=== PATIENT | female | born 2000 | race Caucasian/White ===

== ENCOUNTER 2021-12-19 15:53 | Observation (INO) | payer BC ==
[2021-12-19 16:33] LABS: #Eosinphils 0.2 10x3/uL (0.0-0.5); #Monocytes 0.4 10x3/uL (0.0-1.1); #Neutrophils 3.4 10x3/uL (1.5-8.4); %Basophils 0.3 % (0.0-2.0); %Lymphocytes 37.4 % (18.0-47.0); %Monocytes 5.9 % (0.0-10.0); %Neutrophils 53.2 % (40.0-75.0); Hemoglobin 12.4 g/dL (12.0-15.5); Mean Corpuscular HGB CONC 34.2 g/dL (32.0-36.0); Mean Corpuscular Volume 87.9 fl (81.6-98.3); Mean Platelet Volume 9.5 fl (7.4-10.4); Platelet Count 197 10x3/uL (150-450); RBC Distribution Width 12.6 % (11.5-14.5); Red Blood Cell (RBC) Count 4.13 10x6/uL (3.90-5.03); White Blood Cell (WBC) Count 6.3 10x3/uL (3.5-10.5)
[2021-12-19 16:50] LABS: ALT (SGPT) 11 U/L (8-55); AST (SGOT) 12 U/L (5-34); Albumin 4.8 g/dL (3.5-5.0); Alkaline Phosphatase 66 U/L (40-110); Anion Gap 15 mmol/L (10-20); BUN (Urea Nitrogen) 13 mg/dL (7.0-18.7); Bilirubin, Total 0.3 mg/dL (0.2-1.2); Calc. Creatinine Clearance 0 mL/min (70-130); Calcium 9.4 mg/dL (7.8-10.44); Carbon Dioxide 21 mmol/L (22-29); Chloride 111 mmol/L (98-107); Globulin 2.4 g/dL (2.4-3.5); Glucose 115 mg/dL (70-105); Lipase 276 U/L (8-78); Potassium 3.7 mmol/L (3.5-5.1); Protein, Total 7.2 g/dL (6.0-8.3); Sodium 143 mmol/L (136-145)
[2021-12-19] MEDS ORDERED: Morphine 4 MG/ML VIAL ONE (17:20)
[2021-12-19] MEDS ORDERED: Ondansetron PF 4 MG/2 ML Vial ONE (17:20)
[2021-12-19] MEDS ORDERED: Acetaminophen 650 MG Suppository PR PRN (18:08)
[2021-12-19] MEDS ORDERED: Ondansetron ODT 4 MG TAB PO PRN (18:08)
[2021-12-19 18:51] VITALS: BMI 20.4
[2021-12-19] MEDS: Lactated Ringer's 1,000 ML IV SCH (20:15)
[2021-12-19] MEDS: Morphine 2 MG/ML VIAL SLOW IVP PRN (20:34)
[2021-12-20 00:24] LABS: SARS-CoV-2 PCR by NAA Not Detected (NotDetected)
[2021-12-20] MEDS: Acetaminophen 325 MG TAB PO PRN ×2 (01:19→18:06)
[2021-12-20] MEDS: Lactated Ringer's 1,000 ML IV SCH ×5 (01:20→19:18)
[2021-12-20 05:46] LABS: ALT (SGPT) 9 U/L (8-55); AST (SGOT) 11 U/L (5-34); Albumin 3.8 g/dL (3.5-5.0); Alkaline Phosphatase 53 U/L (40-110); Anion Gap 11 mmol/L (10-20); BUN (Urea Nitrogen) 9 mg/dL (7.0-18.7); Bilirubin, Total 0.4 mg/dL (0.2-1.2); Calc. Creatinine Clearance 98 mL/min (70-130); Calcium 8.8 mg/dL (7.8-10.44); Carbon Dioxide 24 mmol/L (22-29); Chloride 112 mmol/L (98-107); Globulin 1.9 g/dL (2.4-3.5); Glucose 85 mg/dL (70-105); Potassium 3.9 mmol/L (3.5-5.1); Protein, Total 5.7 g/dL (6.0-8.3); Sodium 143 mmol/L (136-145)
[2021-12-20 05:55] LABS: #Eosinphils 0.3 10x3/uL (0.0-0.5); #Monocytes 0.4 10x3/uL (0.0-1.1); #Neutrophils 1.5 10x3/uL (1.5-8.4); %Basophils 0.5 % (0.0-2.0); %Eosinophils 5.2 % (0.0-6.0); %Lymphocytes 60.2 % (18.0-47.0); %Monocytes 7.5 % (0.0-10.0); %Neutrophils 26.4 % (40.0-75.0); Hemoglobin 11.4 g/dL (12.0-15.5); Mean Corpuscular HGB CONC 34.4 g/dL (32.0-36.0); Mean Corpuscular Hemoglobin 29.8 pg (27.0-33.0); Mean Corpuscular Volume 86.6 fl (81.6-98.3); Mean Platelet Volume 11.1 fl (7.4-10.4); RBC Distribution Width 12.8 % (11.5-14.5); Red Blood Cell (RBC) Count 3.82 10x6/uL (3.90-5.03); White Blood Cell (WBC) Count 5.8 10x3/uL (3.5-10.5)
[2021-12-20 05:56] LABS: Platelet Count 143 10x3/uL (150-450)
[2021-12-20 05:58] LABS: Eosinophils 5 % (0-10); Lymphocytes 65 % (21-51); Monocytes 8 % (0-10); Reactive Lymphocytes 3 % (0-10)
[2021-12-20 05:59] LABS: Platelet Morphology Comment Appears Adequate
[2021-12-20 06:00] LABS: RBC Morphology Normal
[2021-12-20] MEDS: Pantoprazole 40 MG VIAL IVP SCH (08:51)
[2021-12-20 09:57] LABS: Cardiac Risk 2.1 (Less than 4.5)
[2021-12-20 10:02] LABS: Bilirubin Neg (Negative); Blood, Urine Negative (Negative); Clarity Clear (Clear); Glucose, Urine (Dipstick) Normal (Negative); Ketone, Urine Negative (Negative); Leukocyte Negative (Negative); Nitrite Negative (Negative); Protein, Urine (Dipstick) Negative (Neg-Trace); Specific Gravity, Urine 1.005 (1.002-1.036); Urobilinogen Normal mg/dL (Less than 2)
[2021-12-20 10:03] LABS: Urine Culture Reflex No No
[2021-12-20 10:05] LABS: Pregnancy Test - Urine (BHCG) Negative (Negative); Pregu Control Background? CLEAR/WHITE (CLR/WHITE); Pregu Control Bar Appear? YES (CONTROL BAR); Specific Gravity 1.005 (1.002-1.036)
[2021-12-20] MEDS: HYDROcodone/Acetaminophen 5/325 mg Tablet PO PRN ×2 (10:06→14:05)
[2021-12-20 10:26] LABS: Bacteria/HPF Rare-Few HPF (None Seen); RBC/HPF 0-3 HPF (0-3); WBC/HPF None Seen HPF (0-3)
[2021-12-20] MEDS: Ondansetron PF 4 MG/2 ML Vial IVP PRN (15:53)
[2021-12-20] MEDS ORDERED: Metoclopramide HCl 10 MG/2 ML VIAL IVP SCH ×2 (18:45→20:15)
[2021-12-20] MEDS ORDERED: diphenhydrAMINE 50 MG CAP PO SCH (18:45)
[2021-12-20] MEDS ORDERED: Ketorolac Tromethamine 30 MG/ML VIAL IVP SCH ×2 (18:45→20:15)
[2021-12-20] MEDS: Morphine 2 MG/ML VIAL SLOW IVP PRN (19:01)
[2021-12-20] MEDS: carBAMazepine 200 MG TAB PO SCH (20:30)
[2021-12-20] MEDS ORDERED: SUMAtriptan Succinate 6 MG/0.5 ML VIAL SC SCH (22:45)
[2021-12-21] MEDS: Lactated Ringer's 1,000 ML IV SCH ×2 (00:15→05:25)
[2021-12-21] MEDS: Acetaminophen 325 MG TAB PO PRN (05:27)
[2021-12-21 06:14] LABS: ALT (SGPT) 7 U/L (8-55); AST (SGOT) 10 U/L (5-34); Albumin 3.6 g/dL (3.5-5.0); Alkaline Phosphatase 52 U/L (40-110); Anion Gap 13 mmol/L (10-20); BUN (Urea Nitrogen) 7 mg/dL (7.0-18.7); Bilirubin, Total 0.4 mg/dL (0.2-1.2); Calc. Creatinine Clearance 109 mL/min (70-130); Calcium 8.5 mg/dL (7.8-10.44); Carbon Dioxide 23 mmol/L (22-29); Chloride 110 mmol/L (98-107); Globulin 1.7 g/dL (2.4-3.5); Glucose 72 mg/dL (70-105); Potassium 3.6 mmol/L (3.5-5.1); Protein, Total 5.3 g/dL (6.0-8.3); Sodium 142 mmol/L (136-145)
[2021-12-21 06:52] LABS: Hemoglobin 10.8 g/dL (12.0-15.5); Mean Corpuscular HGB CONC 34.1 g/dL (32.0-36.0); Mean Corpuscular Hemoglobin 29.8 pg (27.0-33.0); Mean Corpuscular Volume 87.6 fl (81.6-98.3); Mean Platelet Volume 10.5 fl (7.4-10.4); Platelet Count 144 10x3/uL (150-450); RBC Distribution Width 12.3 % (11.5-14.5); Red Blood Cell (RBC) Count 3.62 10x6/uL (3.90-5.03); White Blood Cell (WBC) Count 4.4 10x3/uL (3.5-10.5)
[2021-12-21 07:01] LABS: MDiff Complete? YES
[2021-12-21 07:13] LABS: Eosinophils 3 % (0-10); Lymphocytes 61 % (21-51); Monocytes 5 % (0-10); Neutrophil 31 % (42-75)
[2021-12-21 07:14] LABS: Platelet Morphology Comment Appears Adequate; RBC Morphology Normal; Reflex for Review?? YES
[2021-12-21] MEDS: HYDROcodone/Acetaminophen 5/325 mg Tablet PO PRN ×2 (08:26→12:30)
[2021-12-21] MEDS: Pantoprazole 40 MG VIAL IVP SCH (08:27)
[2021-12-21] MEDS: Ondansetron PF 4 MG/2 ML Vial IVP PRN (08:27)
[2021-12-21] MEDS: carBAMazepine 200 MG TAB PO SCH (08:27)
[2021-12-21 10:54] LABS: MDiff Complete? YES; Neutrophil 19 % (42-75)
[2021-12-21 12:33] LABS: Hemoglobin A1c 4.9 % (4.0-6.0)
[2021-12-21 15:57] VITALS: BP 121/60; TEMP 97.5
[2021-12-22 07:20] LABS: IgG Subclass 1 585 mg/dL (248-810); IgG Subclass 2 261 mg/dL (130-555); IgG Subclass 3 62 mg/dL (15-102); Immunoglobulin - G (Sendout) 1001 mg/dL (586-1602)
== END 2021-12-21 16:09 | disposition home or self-care (01) ==
LOC: CSHERS 15:53 → CSHTELE 17:56 → INTOOBSV 17:56
PROVIDERS: ADMIT Family Medicine; ATTEND Family Medicine
DX: K85.90 Acute pancreatitis without necrosis or infection, unspecified (principal); R51.9 Headache, unspecified; F44.5 Conversion disorder with seizures or convulsions; F41.9 Anxiety disorder, unspecified; D69.6 Thrombocytopenia, unspecified; D64.9 Anemia, unspecified; Z86.16 Personal history of COVID-19; Z86.718 Personal history of other venous thrombosis and embolism; Z91.51 Personal history of suicidal behavior; Z79.899 Other long term (current) drug therapy; Z88.0 Allergy status to penicillin; Z91.041 Radiographic dye allergy status; Z98.2 Presence of cerebrospinal fluid drainage device; Z20.822 Contact with and (suspected) exposure to COVID-19
CPT/HCPCS: 36415; 70450; 71045; 74176; 76705; 80053; 80061; 81001; 81025; 82787; 83036; 83690; 83735; 84443; 84484; 85025; 85060; 86140; 87086; 93005; 93010; 96374; 96375; 96376; C9113; G0378; J1885; J2270; J2405; J2765; J7120; Q0162; U0003; U0005

== ENCOUNTER 2021-12-24 14:53 | Emergency (ER) | payer BC ==
[2021-12-24] MEDS ORDERED: Metoclopramide HCl 10 MG TAB ONE (16:27)
[2021-12-24] MEDS ORDERED: Ibuprofen 200 MG TAB ONE (16:28)
== END 2021-12-24 17:23 | disposition home or self-care (01) ==
LOC: CSHERS 14:53
DX: G91.9 Hydrocephalus, unspecified (principal); Z86.718 Personal history of other venous thrombosis and embolism
CPT/HCPCS: 70450; 75809

== ENCOUNTER 2022-01-31 21:03 | Emergency (ER) | payer BC ==
[2022-02-01] MEDS ORDERED: Ketorolac Tromethamine 30 MG/ML VIAL ONE (02:11)
== END 2022-02-01 02:14 | disposition home or self-care (01) ==
LOC: CSHERS 21:03
DX: G44.309 Post-traumatic headache, unspecified, not intractable (principal); F07.81 Postconcussional syndrome
CPT/HCPCS: 70450; 75809; J1885

== ENCOUNTER 2022-02-07 18:09 | Emergency (ER) | payer BC ==
[~2022-02-07 18:09] MED LIST: Iopamidol 300 61% 100 ML VIAL FS ONE
[2022-02-07 19:26] LABS: Bilirubin Neg (Negative); Blood, Urine Negative (Negative); Clarity Clear (Clear); Glucose, Urine (Dipstick) Normal (Negative); Ketone, Urine Negative (Negative); Leukocyte Negative (Negative); Nitrite Negative (Negative); Protein, Urine (Dipstick) Negative (Neg-Trace); Specific Gravity, Urine 1.005 (1.002-1.036); Urobilinogen Normal mg/dL (Less than 2)
[2022-02-07] MEDS ORDERED: methylPREDNISolone Sod Succ/PF 125 MG/2 ML VIAL ONE (19:38)
[2022-02-07] MEDS ORDERED: Famotidine/PF 20 mg/2ml Vial ONE (19:39)
[2022-02-07] MEDS ORDERED: diphenhydrAMINE 50 MG/ML VIAL ONE (19:39)
[2022-02-07 19:46] LABS: #Eosinphils 0.3 10x3/uL (0.0-0.5); #Monocytes 0.5 10x3/uL (0.0-1.1); #Neutrophils 5.5 10x3/uL (1.5-8.4); %Basophils 0.3 % (0.0-2.0); %Eosinophils 3.6 % (0.0-6.0); %Monocytes 5.5 % (0.0-10.0); %Neutrophils 61.3 % (40.0-75.0); Hemoglobin 12.1 g/dL (12.0-15.5); Mean Corpuscular HGB CONC 33.8 g/dL (32.0-36.0); Mean Corpuscular Hemoglobin 30.2 pg (27.0-33.0); Mean Corpuscular Volume 89.3 fl (81.6-98.3); Platelet Count 206 10x3/uL (150-450); RBC Distribution Width 12.5 % (11.5-14.5); Red Blood Cell (RBC) Count 4.01 10x6/uL (3.90-5.03); White Blood Cell (WBC) Count 9.1 10x3/uL (3.5-10.5)
[2022-02-07 20:01] LABS: ALT (SGPT) 13 U/L (8-55); AST (SGOT) 14 U/L (5-34); Albumin 4.4 g/dL (3.5-5.0); Alkaline Phosphatase 60 U/L (40-110); Anion Gap 13 mmol/L (10-20); BHCG - Serum Negative (NEGATIVE); BUN (Urea Nitrogen) 9 mg/dL (7.0-18.7); Bilirubin, Total 0.3 mg/dL (0.2-1.2); Calc. Creatinine Clearance 0 mL/min (70-130); Calcium 9.7 mg/dL (7.8-10.44); Carbon Dioxide 24 mmol/L (22-29); Chloride 108 mmol/L (98-107); Globulin 2.6 g/dL (2.4-3.5); Glucose 89 mg/dL (70-105); Lipase 17 U/L (8-78); Potassium 4.2 mmol/L (3.5-5.1); Pregs Control Background? CLEAR/WHITE (CLR/WHITE); Pregs Control Bar Appear? YES (CONTROL BAR); Sodium 141 mmol/L (136-145)
== END 2022-02-07 21:38 | disposition home or self-care (01) ==
LOC: CSHERS 18:09
DX: K59.00 Constipation, unspecified (principal)
CPT/HCPCS: 74177; 80053; 81003; 83690; 84703; 85025; 96374; 96375; J1200; J2930; Q9967; S0028

== ENCOUNTER 2024-06-18 15:57 | Emergency (ER) | payer BC ==
[2024-06-18 19:07] LABS: Bilirubin Neg (Negative); Blood, Urine Negative (Negative); Clarity Clear (Clear); Glucose, Urine (Dipstick) Normal (Negative); Ketone, Urine Negative (Negative); Leukocyte Negative (Negative); Nitrite Negative (Negative); Protein, Urine (Dipstick) Negative (Neg-Trace); Specific Gravity, Urine 1.015 (1.005-1.030)
[2024-06-18 19:09] LABS: Pregnancy Test - Urine (BHCG) Negative (Negative); Pregu Control Background? CLEAR/WHITE (CLR/WHITE); Pregu Control Bar Appear? YES (CONTROL BAR); Specific Gravity 1.015 (1.002-1.036)
[2024-06-18] MEDS ORDERED: Ibuprofen 200 MG TAB ONE (19:22)
[2024-06-18 19:53] LABS: Bacteria/HPF 1+ HPF (None Seen); CAUTI Indications for Culture Pelvic or flank pain; RBC/HPF 0-3 HPF (0-3); WBC/HPF 0-3 HPF (0-3)
[2024-06-18 19:54] LABS: Mucous/LPF 2+ LPF (<2+)
[2024-06-18 19:55] LABS: Urine Culture Reflex No No
== END 2024-06-18 21:10 | disposition home or self-care (01) ==
LOC: CSHERS 15:57
DX: M25.532 Pain in left wrist (principal); R10.13 Epigastric pain
CPT/HCPCS: 71045; 81001; 81025; 87086; 93005